=== PATIENT | female | born 1995 | race Caucasian/White ===

== ENCOUNTER 2019-02-20 14:27 | Emergency (ER) | payer SELFPAY ==
[~2019-02-20] VITALS: Ht 160 cm; Wt 80.2 kg
[2019-02-20] MEDS ORDERED: KETOROLAC 60 MG/2 ML VIAL IM ONE (15:00)
[2019-02-20] MEDS ORDERED: ORPHENADRINE 60 MG/2 ML (NORFLEX) AMP IM ONE (15:00)
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
[2019-02-20] MEDS ORDERED: METH-313 PO (15:39)
[2019-02-20] MEDS ORDERED: NAPR-1071 PO (15:39)
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
[2019-02-20 16:18] VITALS: BP 124/75
== END 2019-02-20 16:18 | disposition home or self-care (01) ==
LOC: ER 14:30
DX: S16.1XXA Strain of muscle, fascia and tendon at neck level, initial encounter (principal); S14.3XXA Injury of brachial plexus, initial encounter; R40.2142 Coma scale, eyes open, spontaneous, at arrival to emergency department; R40.2252 Coma scale, best verbal response, oriented, at arrival to emergency department; R40.2362 Coma scale, best motor response, obeys commands, at arrival to emergency department; Z88.1 Allergy status to other antibiotic agents; V49.40XA Driver injured in collision with unspecified motor vehicles in traffic accident, initial encounter
CPT/HCPCS: 70450; 71045; 72125; 96372

== ENCOUNTER 2020-10-08 12:05 | Emergency (ER) | payer MEDICAID, OTHER ==
[~2020-10-08] VITALS: Ht 160 cm; Wt 87.5 kg
[~2020-10-08 12:05] MED LIST: METH-313 PO; NAPR-1071 PO
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
[2020-10-08] MEDS ORDERED: LACTATED RINGERS 1,000 ML IV STA (12:20)
[2020-10-08 12:35] LABS: WHITE BLOOD COUNT 17.6 10^3/uL (4.3-11.0)
[2020-10-08 12:36] LABS: BASOPHILS # (AUTO) 0.1 10^3/uL (0.0-0.1); BASOPHILS % (AUTO) 0 % (0-10); EOSINOPHILS # (AUTO) 0.1 10^3/uL (0.0-0.3); EOSINOPHILS % (AUTO) 1 % (0-10); HEMATOCRIT 40 % (35-52); HEMOGLOBIN 13.3 G/DL (11.5-16.0); LYMPHOCYTES # (AUTO) 2.3 X 10^3 (1.0-4.0); LYMPHOCYTES % (AUTO) 13 % (12-44); MEAN CORPUSCULAR HEMOGLOBIN 29 PG (25-34); MEAN CORPUSCULAR HGB CONC 33 G/DL (32-36); MEAN CORPUSCULAR VOLUME 87 FL (80-99); MEAN PLATELET VOLUME 9.7 FL (7.4-10.4); MONOCYTES # (AUTO) 1.3 X 10^3 (0.0-1.0); MONOCYTES % (AUTO) 8 % (0-12); NEUTROPHILS # (AUTO) 13.5 X 10^3 (1.8-7.8); NEUTROPHILS % (AUTO) 77 % (42-75); PLATELET COUNT 274 10^3/uL (130-400)
[2020-10-08 13:10] LABS: BAND NEUTROPHILS 6 %; LYMPHOCYTES % (MANUAL) 9 %; MONOCYTES % (MANUAL) 7 %; NEUTROPHILS % (MANUAL) 68 %
[2020-10-08 13:11] LABS: CLARITY,URINE CLOUDY; COLOR,URINE YELLOW
[2020-10-08 13:11] LABS: ATYPICAL LYMPHOCYTES 8 %; EOSINOPHILS % (MANUAL) 2 %; RBC MORPH NORMAL
[2020-10-08 13:12] LABS: BACTERIA,URINE LARGE /HPF; BILIRUBIN,URINE NEGATIVE (NEGATIVE); GLUCOSE, URINE (UA) NEGATIVE (NEGATIVE); KETONES,URINE NEGATIVE (NEGATIVE); LEUKOCYTE ESTERASE ,URINE 1+ (NEGATIVE); NITRITE,URINE NEGATIVE (NEGATIVE); PROTEIN,URINE NEGATIVE (NEGATIVE)
[2020-10-08 13:14] LABS: ALANINE AMINOTRANSFERASE 20 U/L (0-55); ALKALINE PHOSPHATASE 101 U/L (40-136); BILIRUBIN,TOTAL 0.2 MG/DL (0.1-1.0); BUN/CREATININE RATIO 10; CALCIUM 9.7 MG/DL (8.5-10.1); CARBON DIOXIDE 25 MMOL/L (21-32); CHLORIDE 101 MMOL/L (98-107); CREATININE SERUM 0.68 MG/DL (0.60-1.30); GFR ESTIMATED > 60; GLUCOSE 115 MG/DL (70-105); MAGNESIUM 1.9 MG/DL (1.6-2.4); POTASSIUM 4.1 MMOL/L (3.6-5.0); SODIUM 136 MMOL/L (135-145)
[2020-10-08 13:15] LABS: ALBUMIN 3.8 GM/DL (3.2-4.5); TOTAL PROTEIN 7.2 GM/DL (6.4-8.2)
[2020-10-08] MEDS ORDERED: CEPH500T PO (13:26)
[2020-10-08 13:30] VITALS: BP 112/68
== END 2020-10-08 13:32 | disposition home or self-care (01) ==
LOC: EDUNIT# 12:05 → ER FS 12:07
DX: O23.42 Unspecified infection of urinary tract in pregnancy, second trimester (principal); R55 Syncope and collapse; Z3A.23 23 weeks gestation of pregnancy
CPT/HCPCS: 36415; 80053; 81000; 82947; 83735; 84484; 85007; 85027; 87088; 93005; 93041

== ENCOUNTER 2022-12-22 14:10 | Emergency (ER) | payer MEDICAID ==
[~2022-12-22] VITALS: Ht 160 cm; Wt 90.0 kg
[~2022-12-22 14:10] MED LIST changes: +CEPH500T PO
--- NOTE | 2022-12-22 15:08 | ED Cough/URI ---
General Chief Complaint: Cough/Cold/Flu Symptoms Stated Complaint: COUGH; SORE THROAT Nursing Triage Note: COUGH FOR A COUPLE OF DAYS NOW. Source: patient Exam Limitations: no limitations History of Present Illness Date Seen by Provider: Dec 22, 2022 Time Seen by Provider: 14:12 Initial Comments 27-year-old female that is 15 days since breathing her child via spontaneous vaginal delivery coming in due to URI type symptoms. She has had a cough for couple days which is mildly productive, no vomiting, diarrhea, she does have fever. Has been taking Tylenol and ibuprofen for this. She does breast-feed. Otherwise denying any other acute complaints. Allergies and Home Medications Allergies Coded Allergies: cefaclor (Verified Allergy, Intermediate, HIVES, 02/20/19) clarithromycin (Verified Allergy, Intermediate, HIVES, 02/20/19) Patient Home Medication List Home Medication List Reviewed: Yes Cephalexin (Cephalexin) 500 Mg Tablet, 500 MG PO QID Prescribed by: SEAN NGUYEN on 10/08/20 1326 Methocarbamol (Robaxin-750) 750 Mg Tablet, 750 MG PO Q4H PRN for PAIN-SEVERE (8- 10) Prescribed by: JACE SANDOVAL on 02/20/19 1539 Naproxen (Naprosyn) 500 Mg Tablet, 500 MG PO BID PRN for PAIN-MODERATE (5-7) Prescribed by: JACE SANDOVAL on 02/20/19 1539 Review of Systems Review of Systems Constitutional: fever Respiratory: cough Cardiovascular: No chest pain Gastrointestinal: No vomiting Genitourinary: no symptoms reported Musculoskeletal: no symptoms reported Skin: no symptoms reported Psychiatric/Neurological: No Symptoms Reported Past Qynmasn-Ymhijj-Fajgmz Hx Patient Social History Tobacco Use?: Yes Tobacco type used: Cigarettes Smoking Status: Current Everyday Smoker Use of E-Cig and/or Vaping dev: No Substance use?: No Alcohol Use?: No Pt feels they are or have been: No Immunizations Up To Date Influenza Vaccine Up-to-Date: No; Not Current Seasonal Allergies Seasonal Allergies: No Past Medical History Surgeries: No Respiratory: No Cardiac: No Neurological: No Female Reproductive Disorders: Endometriosis Genitourinary: No Gastrointestinal: No Musculoskeletal: No Endocrine: No Cancer: No Psychosocial: No Integumentary: No Blood Disorders: No Physical Exam Vital Signs - First Documented Capillary Refill : Less Than 3 Seconds Height: '" Weight: lbs. oz. kg; 35.00 BMI Method: General Appearance: WD/WN, no apparent distress Eyes: Bilateral Eye Normal Inspection HEENT: PERRL/EOMI, normal ENT inspection, TMs normal, pharynx normal Neck: non-tender, full range of motion, supple, normal inspection Respiratory: chest non-tender, lungs clear, normal breath sounds, no respiratory distress, no accessory muscle use Cardiovascular: regular rate, rhythm, no edema, no murmur Gastrointestinal: normal bowel sounds, non tender, soft; No distended, No guarding, No rebound Extremities: normal range of motion, non-tender, normal inspection, no pedal edema, no calf tenderness, normal capillary refill Neurologic/Psychiatric: no motor/sensory deficits, alert, normal mood/affect Skin: normal color, warm/dry Progress/Results/Core Measures Suspected Sepsis SIRS Temperature: Pulse: 74 Respiratory Rate: 16 Blood Pressure 132 /91 Mean: 105 Results/Orders Lab Results Laboratory Tests Test 12/22/22 14:48 Range/Units My Orders Orders - ELVER AKBAR MD Covid 19 Inhouse Test (12/22/22 14:41) Influenza A And B By Pcr (12/22/22 14:41) Vital Signs/I&O 12/22/22 12/22/22 14:20 14:20 Temp 36.4 Pulse 74 Resp 16 B/P (MAP) 132/91 (105) Pulse Ox 100 O2 Delivery Room Air Room Air Capillary Refill : Less Than 3 Seconds Blood Pressure Mean: 105 Progress Note : Progress Note 27-year-old female with above history coming in due to URI type symptoms. ABCs were intact and vitals were stable on presentation. Physical exam reassuring including clear lungs. Flu and COVID testing was sent. Sounds viral in nature and I do not believe she requires imaging or admission at this time. We recommend symptomatic management. I believe she is stable for discharge with outpatient follow-up. She was sent home with strict return precautions. Departure Impression Primary Impression: URI (upper respiratory infection) Qualified Codes: J06.9 - Acute upper respiratory infection, unspecified Disposition: HOME, SELF-CARE Condition: Stable Departure-Patient Inst. Decision time for Depature: 15:15 Referrals: NYA ESQUIVEL MD (PCP) Primary Care Physician Patient Instructions: Viral Syndrome (DC) Add. Discharge Instructions: This sounds viral in nature. This will take some time to improve. Continue to take the ibuprofen and/or Tylenol as needed for fever. We recommend doing saline rinses as well as a steroid nasal spray was sent to your pharmacy. Scripts Fluticasone Propionate (Fluticasone Propionate) 50 Mcg/Actuation [place].susp 1 SPRAY NS BID for 14 Days, #16 G Prov: ELVER AKBAR MD 12/22/22 ELVER AKBAR MD Dec 22, 2022 15:08
[2022-12-22] MEDS ORDERED: FLUT15.845 NS (15:09)
[2022-12-22 15:11] VITALS: BP 132/91
== END 2022-12-22 15:11 | disposition home or self-care (01) ==
LOC: EDUNIT# 14:10 → ER FS 14:12
DX: J06.9 Acute upper respiratory infection, unspecified (principal); F17.210 Nicotine dependence, cigarettes, uncomplicated; Z20.822 Contact with and (suspected) exposure to COVID-19
CPT/HCPCS: 87636; 99283